=== PATIENT | male | born 1970 | race Caucasian/White ===

== ENCOUNTER 2022-06-15 18:39 | Emergency (ER) | payer SELFPAY ==
[2022-06-15] MEDS ORDERED: Morphine 4 MG/ML VIAL ONE ×2 (19:12→20:35)
[2022-06-15] MEDS ORDERED: Ondansetron PF 4 MG/2 ML Vial ONE (19:12)
[2022-06-15] MEDS ORDERED: Lidocaine Viscous Sol 2% 15 ml UD Cup ONE (20:52)
== END 2022-06-15 21:40 | disposition home or self-care (01) ==
LOC: ERS 18:39
DX: R33.9 Retention of urine, unspecified (principal); N30.00 Acute cystitis without hematuria; I10 Essential (primary) hypertension; F17.220 Nicotine dependence, chewing tobacco, uncomplicated
CPT/HCPCS: 51702; 96374; 96375; 96376; J2270; J2405